=== PATIENT | female | born 1935 | race Caucasian/White ===

== ENCOUNTER 2020-05-19 15:09 | Outpatient (REF) | payer OTHER, SELFPAY ==
[2020-05-19 16:12] LABS: Anion Gap 22 (12-20); Blood Urea Nitrogen 35 mg/dL (9-16); Calcium 7.7 mg/dL (8.4-10.2); Carbon Dioxide 18 mmol/L (22-29); Chloride 101 mmol/L (96-108); Estimated Glomerular Filt Rate 50; Glucose Random 49 mg/dL (60-115); Potassium 5.5 mmol/l (3.3-5.1); Sodium 135 mmol/L (135-145)
== END 2020-05-19 15:10 | disposition home or self-care (01) ==
LOC: HO.HVNA 15:09
PROVIDERS: Visit Provider Internal Medicine
DX: N18.9 Chronic kidney disease, unspecified (principal)
CPT/HCPCS: 80048

== ENCOUNTER 2020-06-13 18:23 | Inpatient (IN) | payer OTHER, SELFPAY ==
[2020-06-13 18:36] VITALS: BP 167/71; BP 178/100; PULSE 105; PULSE 62; RESP 18; TEMP 37.7; O2SAT 98; BMI 18.5
--- NOTE | 2020-06-13 18:46 | CT_ITS ---
EXAMINATION: CT ABDOMEN AND PELVIS WITH CONTRAST CLINICAL INFORMATION: Lower abdominal pain, diarrhea COMPARISON: 02/11/2016 TECHNIQUE: Multidetector volumetric images were obtained from the superior aspect of the liver through the pubic symphysis following administration 85 mL of Omnipaque 350 intravenous contrast. Sagittal and coronal reformatted images were obtained on the technologist's workstation. Oral contrast: No This CT examination was performed using dose optimization techniques as appropriate, variously including the following: *Automated exposure control *Adjustment of mA and/or kV according to patient size (this includes techniques or standardized protocols for targeted exams where dose is matched to indication/reason for exam; i.e. extremities or head) *Use of iterative reconstruction technique DLP: 267 mGy-cm FINDINGS: LUNG BASES: The visualized lung bases are unremarkable. LIVER, GALLBLADDER, AND BILIARY TREE: The liver is normal in size, shape, and attenuation. No focal hepatic lesion or biliary ductal dilatation is present. The gallbladder is been removed. PANCREAS: The pancreatic tail is atrophied. SPLEEN: Unremarkable. ADRENAL GLANDS: Unremarkable. KIDNEYS AND URETERS: The kidneys are normal in size, shape, and attenuation. No hydronephrosis, hydroureter, or calculi seen. No perinephric stranding. BLADDER: Unremarkable. GASTROINTESTINAL TRACT: Stool-filled large bowel without dilatation to suggest obstruction. There is circumferential wall thickening throughout much of the sigmoid possibly representing diverticulitis or other nonspecific colitis. No obvious mass lesion. ABDOMINAL WALL: No significant hernia is appreciated. LYMPH NODES: Normal. VASCULAR: Diffuse atherosclerotic calcifications. PELVIC VISCERA: Unremarkable. OSSEOUS STRUCTURES: Osteopenia. Severe degenerative disc disease at L4-L5. Grouping of numerous subcutaneous calcifications superficial to both the right and left ischial tuberosities likely reflecting chronic pressure reaction. CT/CT abdomen pelvis w con IMPRESSION: Circumferential wall thickening of the sigmoid which may represent diverticulitis or other inflammatory process with no obvious mass lesion. There is stool throughout the large bowel with no dilatation to indicate an obstruction.
[2020-06-13 19:20] VITALS: BP 164/72; PULSE 96; RESP 18; TEMP 37.6; O2SAT 100
[2020-06-13 19:27] VITALS: TEMP 39.2
--- NOTE | 2020-06-13 20:10 | ED.ABDPAIN ---
HPI - Abdominal Pain General Chief Complaint: Abdominal Pain Stated Complaint: abd pain Time Seen by Provider: 06/13/20 18:39 Source: patient Mode of arrival: ambulatory History of Present Illness HPI narrative: 85-year-old female with a past medical history of HTN, GERD, cholecystectomy, abdominal surgery, presented to ED complaining of lower abdominal pain and diarrhea x3 days, worsening today. Denies bloody diarrhea/melena, nausea/vomiting, dysuria/hematuria, fever/chills MD elicited complaint: abdominal pain Related Data Allergies Allergy/AdvReac Type Severity Reaction Status Date / Time latex [LATEX] Allergy Intermediate ITCHING Unverified 04/03/20 15:27 nickel [NICKEL] Allergy Intermediate RASH/ITCH Unverified 04/03/20 15:27 Review of Systems Review of Systems Constitutional: No Weight loss, No Fever, No Chills Cardiovascular: No Chest Pain, No SOB, No Dyspnea on Exertion Respiratory: No Cough, No Dyspnea Gastrointestinal: No Nausea, No Vomiting, + Diarrhea, No Constipation, +Abdominal pain, No Hematochezia, No Melena Genitourinary: No irregular bleeding, No Dysuria, No Urinary Frequency, No Hematuria, No Flank Pain Musculoskeletal: No joint pain, No Myalgias, No Joint Swelling Skin: No Skin Lesions, No rash Yes all other systems are reviewed and are negative Physical Exam Vital Signs: Vital Signs: Last Vital Signs Temp 102.5 F H 06/13/20 19:27 Pulse 96 06/13/20 19:20 Resp 18 06/13/20 19:20 BP 164/72 H 06/13/20 19:20 Pulse Ox 100 06/13/20 19:20 Body Mass Index 18.5 Const: General: cooperative Orientation/consciousness: patient oriented x3 Limitations: no limitations HENMT: Head: Yes normal to inspection Ears: hearing grossly normal bilaterally General nose exam: Normal external nose present Face and sinus: Yes normal facial exam Eyes: General: appearance normal, both eyes and all related structures EOM: EOMs intact bilaterally Neck: Neck: Yes normal visual inspection Resp: Effort & Inspection: normal respiratory effort Cardio: Rate: regular rate GI: Inspection: Yes normal to inspection Palpation (GI): Soft to palpation, Tenderness to palpation present (GI) (Lower abdomen), no guarding and not rigid : General: Yes no CVA tenderness Back/Spine/Pelvis: Back: no CVA tenderness Skin: Rashes: no rashes Wounds: no wounds Neuro: General: patient oriented x3 Gait exam (Neuro): Normal gait present Extrem: General: Yes normal to inspection Course Course Course Narrative: -due to fever and tachycardia> empiric IV Zosyn ordered, blood cultures, and lactate will be obtained -leukocytosis of 16.5 with left shift -2100-- ED care transferrd to [employer] [facility] pending labs, CT, COVID-19 and re-evaluation MDM - Abdominal Pain MDM Narrative Medical decision making narrative: 85-year-old female with a past medical history of HTN, GERD, cholecystectomy, abdominal surgery, presented to ED complaining of lower abdominal pain and diarrhea x3 days. On exam mildly low-grade temp 99.8?, tachycardic likely from fever, abdomen soft with lower abdominal tenderness, no rebound or guarding. Concern for diverticulitis/appendicitis vs gastroenteritis or UTI. Plan: Labs, CT, UA, reassess Lab Data Result diagrams: 06/13/20 20:27 06/13/20 20:27 Labs: Lab Results 06/13/20 06/13/20 Range/Units 20:27 20:27 WBC 16.5 H (4.8-10.8) X10*3/uL RBC 3.40 L (4.20-5.50) X10*6/uL Hgb 9.9 L (12.0-16.0) g/dl Hct 31.2 L (37-47) % MCV 91.8 (80-98) fL MCH 29.1 (27.0-33.0) pg MCHC 31.7 (31.0-35.0) g/dl RDW 15.7 (11.0-16.0) % Plt Count 469 H (160-400) X10*3/uL MPV 8.5 L (9.4-12.3) fL Immature Gran % (Auto) 0.7 H (0.0-0.4) % Neut % (Auto) 89.7 H (45-73) % Lymph % (Auto) 5.3 L (20-40) % [place] % (Auto) 4.1 (2-11) % Eos % (Auto) 0.0 (0-4) % Baso % (Auto) 0.2 (0-2) % Lymph # (Auto) 0.9 L (1.2-4.9) X10*3/uL [place] # (Auto) 0.7 (0.1-1.2) X10*3/uL Eos # (Auto) 0.0 (0.0-0.4) X10*3/uL Baso # (Auto) 0.0 (0.0-0.2) X10*3/uL Abs Immat Gran (auto) 0.11 H (0.00-0.03) X10*3/uL Absolute Neuts (auto) 14.8 H (2.0-8.3) X10*3/uL Absolute Nucleated RBC 0.000 (0.0-0.012) X10*3/uL Nucleated RBC % (auto) 0.0 (0.0-0.2) /100WBC Hold Blue Top SEE NOTE Discharge Plan Discharge Clinical Impression: Abdominal pain, Fever PMFSH Past Medical History Attestation statement: The following information was validated with the patient. Social History Social History Advance Directives: No
--- NOTE | 2020-06-13 20:28 | PC.NURSE ---
pt is a difficult stick, 2nd rn attempting to get a line. labs drawn by leticia
[2020-06-13 20:37] LABS: Basophils Percent Auto 0.2 % (0-2); Hematocrit 31.2 % (37-47); Hemoglobin 9.9 g/dl (12.0-16.0); Imm Gran Abs Auto 0.11 X10*3/uL (0.00-0.03); Imm Gran Pct Auto 0.7 % (0.0-0.4); Lymphocytes Absolute Auto 0.9 X10*3/uL (1.2-4.9); Lymphocytes Percent Auto 5.3 % (20-40); MANUAL DIFF FLAG NO; Mean Corpuscular HGB Conc 31.7 g/dl (31.0-35.0); Mean Corpuscular Hemoglobin 29.1 pg (27.0-33.0); Mean Corpuscular Volume 91.8 fL (80-98); Mean Platelet Volume 8.5 fL (9.4-12.3); Monocytes Absolute Auto 0.7 X10*3/uL (0.1-1.2); Monocytes Percent Auto 4.1 % (2-11); Neutrophils Absolute Auto 14.8 X10*3/uL (2.0-8.3); Neutrophils Percent Auto 89.7 % (45-73); Platelet Count 469 X10*3/uL (160-400); Red Cell Distribution Width 15.7 % (11.0-16.0); White Blood Count 16.5 X10*3/uL (4.8-10.8)
[2020-06-13] MEDS: Acetaminophen 325 MG TABLET 650 MG PO (21:00)
[2020-06-13] MEDS: Piperacillin Sodium/Tazobactam 3.375 GM in 0.9 % Sodium Chloride 50 ML IV (21:02)
[2020-06-13] MEDS: 0.9 % Sodium Chloride 500 ML IV (21:02)
[2020-06-13 21:04] VITALS: BP 152/81; RESP 24
[2020-06-13 21:14] LABS: Alanine Aminotransferase 13 U/L (0-31); Albumin Level 2.7 g/dL (3.5-5.0); Alkaline Phosphatase 145 U/L (39-117); Anion Gap 14 (12-20); Aspartate Amino Transferase 19 U/L (5-31); Bilirubin Direct 0.3 mg/dL (0.0-0.5); Bilirubin Total 0.5 mg/dL (0.0-1.0); Blood Urea Nitrogen 16 mg/dL (9-16); Calcium 8.1 mg/dL (8.4-10.2); Carbon Dioxide 24 mmol/L (22-29); Chloride 99 mmol/L (96-108); Creatinine Clr Calc Pharmacy 36.6; Estimated Glomerular Filt Rate 60; Glucose Random 107 mg/dL (60-115); Lipase 16 U/L (8-78); Potassium 4.3 mmol/l (3.3-5.1); Sodium 133 mmol/L (135-145); Total Protein 5.7 g/dL (6.5-8.0)
[2020-06-13 21:19] LABS: Lactic Acid 2.7 mmol/L (0.5-2.0)
[2020-06-13 21:45] LABS: B Type Natriuretic Peptide 713 pg/mL (<100)
[2020-06-13] MEDS: iohexoL 350 MG/ML 100 ML INFUS..BTL IV (21:45)
--- NOTE | 2020-06-13 21:51 | PC.NURSE ---
pt reasked again how long she has had diarrhea and pt states 3 weeks not 3 days. pt states she has been using depends for the entire time.
[2020-06-13 22:03] VITALS: TEMP 38.7
[2020-06-13 22:35] LABS: Reflex Lactate? Lactic Acid Added
[2020-06-13] MEDS: diphenhydrAMINE HCL 50 MG/ML VIAL IVPUSH (22:49)
[2020-06-13 23:04] LABS: COVID-19 Test Negative (Negative)
[2020-06-13 23:13] LABS: CDIFF Ag Negative (Negative); CDIFF Internal ctrl Dots and bkg OK (V); CDiff Toxin Negative (Negative)
[2020-06-13 23:26] LABS: Leukocytes Stool Qualitative NEGATIVE (NEGATIVE)
[2020-06-13 23:39] VITALS: BP 84/43; PULSE 104; RESP 20; TEMP 37.9; O2SAT 98
[2020-06-14] VITALS (8 sets, daily range): BP systolic 105–199; BP diastolic 55–77; PULSE 57–87; RESP 16–20; TEMP 36.1–37; O2SAT 94–100
[2020-06-14 00:36] LABS: ~Lactic Acid-LAB USE ONLY 1.8 mmol/L (0.5-2.0)
--- NOTE | 2020-06-14 01:27 | PC.NURSE ---
pt redness to dani area and buttock improving since the extra protective cream has been applied. pt has also been repositioned and ivf to prevent skin further breakdown.
[2020-06-14 01:36] LABS: Glucose Urine UA NEG (NEG); Leukocyte Esterase Urine NEG (NEG); Nitrite Urine NEG (NEG); Specific Gravity - Urine >= 1.030 (1.005-1.025); Urine Blood NEG (NEG); Urine Ketones NEG (NEG); Urine Protein 2+ MG/DL (NEG-TRACE)
[2020-06-14 01:37] LABS: Appearance Urine HAZY; Color Urine AMBER
--- NOTE | 2020-06-14 01:37 | P.HPHOSP_ITS ---
History of Present Illness Date of Service: 06/14/20 Chief Complaint: abdominal pain this is an 85-year-old female with past medical history of hypertension , hypothyroidism, peripheral vascular disease,who presents to hospital with abdominal pain. abdominal pain started yesterday, patient has also been havin g diarrhea on and off for the past several weeks. She has had antibiotics about a month ago for the treatment of lower extremity wounds. Patient is no longer On antibiotics. she was at [facility]. She describes the pain as sharp, located in the right lower extremity, 9/10, nonradiating, worse with food, associated with diarrhea that is nonbloody. She also is complaining of urinary urgency, no frequency, dysuria, no fever or chills. No nausea or vomiting. No chest pain shortness of breath . Has lower extremity edema that is chronic with no changes. She denies any shortness of breath, PND or orthopnea. No headache or change in vision On arrival to the ED hemodynamically stable with no significant abnormal vitals except for 1 recorded low blood pressure of 84/43 which responded to IV fluids and currently blood pressure is 121/68. Labs are significant for a WBC count of 16.5, sodium of 133, lactic acid of 2.7 others that improved to 1.8, BNP of 713, albumin of 2.7, UA negative, C diff negative, COVID-19 negative Past medical history: Hypertension, hypothyroidism, peripheral vascular disease with a recent stent placement on the left lower extremity Surgical history: Status post stomach resection about 54 years ago, cholecystectomy, appendectomy, stent placement in the left lower extremity due to PVD Family history significant for hypertension Social history: Comes from home, walks independently, denies tobacco, drinks alcohol on weekends, denies illicit drug Review of Systems Review of Systems: Yes all other systems are reviewed and are negative [facility] Medical History (Updated 06/14/20 @ 06:27 by Everardo Griggs MD) GERD (gastroesophageal reflux disease) Hypertension Peripheral vascular disease Surgical History Hx laparoscopic cholecystectomy Social History Household Members: None Housing: Assisted Living Facility Do you presently have visiting nurse or other home services: Yes Smoking Status: Never smoker Smoked in Last 30 Days: No Use of substances other than those prescribed or required for medical reasons: No Currently Displaying Signs/Symptoms of Drug Intoxication Withdrawal: No Have you been hit, kicked, punched, or otherwise hurt by someone within the past year? If so, by whom?: No Do you feel safe in your current relationship?: No Current Relationship Is there a partner from a previous relationship who is making you feel unsafe now?: No Are you made to feel afraid or neglected: No Advance Directives: No Do you have thoughts of harming others: None Do you have a plan to hurt others: No Plan Recently lost weight without trying: No Meds Allergies Allergy/AdvReac Type Severity Reaction Status Date / Time latex [LATEX] Allergy Intermediate ITCHING Verified 06/14/20 03:10 nickel [NICKEL] Allergy Intermediate RASH/ITCH Verified 06/14/20 03:10 piperacillin [From Zosyn] AdvReac Hives Verified 06/13/20 22:46 tazobactam [From Zosyn] AdvReac restless, Verified 06/13/20 22:51 itchy Home Medications Medication Instructions Recorded Confirmed Type atenolol 50 tab PO DAILY 06/13/20 06/13/20 History levothyroxine 1 tab PO QAM 06/13/20 06/13/20 History Baby Aspirin 81 mg PO DAILY 06/14/20 06/14/20 History calcitriol 1 cap PO 2XW 06/14/20 06/14/20 History clopidogrel 1 tab PO DAILY 06/14/20 06/14/20 History latanoprost 1 drp OPHTHALMIC (EYE) BEDTIME 06/14/20 06/14/20 History Physical Exam Vital Signs and Narrative: Vital Signs: Last Vital Signs Temp 100.3 F 06/13/20 23:39 Pulse 83 06/14/20 01:18 Resp 16 06/14/20 01:18 BP 105/55 L 06/14/20 01:18 Pulse Ox 100 06/14/20 01:18 Body Mass Index 18.5 Const: General: cooperative and no acute distress Orientation/con sciousness: patient oriented x3 Eyes: General: appearance normal, both eyes and all related structures Pupils: Equal, round and reactive pupils present Resp: Effort & Inspection: normal respiratory effort and able to speak in complete sentences Auscultation: clear to auscultation bilaterally Cardio: Rate: regular rate Rhythm: regular rhythm GI: Palpation (GI): Soft to palpation Auscultation: normal bowel sounds Skin: Other: has bilateral extremity edema with wrapped wounds in the left lower extremity no evidence of erythema, warmth, or tenderness Neuro: General: patient oriented x3 Cranial nerves: Yes Equal, round and reactive pupils present Cognition (Neuro): normal cognition Extrem: Other: 2+ lower extremity edema General: Yes normal to inspection Results Labs CBC and Chem 7: 06/13/20 20:27 06/13/20 20:27 Labs: Laboratory Results - last 24 hr 06/13/20 06/13/20 06/13/20 20:27 20:27 20:27 MCV 91.8 MCH 29.1 MCHC 31.7 RDW 15.7 Plt Count 469 H MPV 8.5 L Immature Gran % (Auto) 0.7 H Neut % (Auto) 89.7 H Lymph % (Auto) 5.3 L [place] % (Auto) 4.1 Eos % (Auto) 0.0 Baso % (Auto) 0.2 Lymph # (Auto) 0.9 L [place] # (Auto) 0.7 Eos # (Auto) 0.0 Baso # (Auto) 0.0 Abs Immat Gran (auto) 0.11 H Absolute Neuts (auto) 14.8 H Absolute Nucleated RBC 0.000 Nucleated RBC % (auto) 0.0 Hold Blue Top SEE NOTE Anion Gap 14 Estim Creat Clear Calc 36.6 Estimated GFR 60 Random Glucose 107 D Lactic Acid Lactic Acid Fup @ 2Hr Calcium 8.1 L Magnesium 2.0 Total Bilirubin 0.5 Direct Bilirubin 0.3 AST 19 ALT 13 Alkaline Phosphatase 145 H B-Natriuretic Peptide Total Protein 5.7 L Albumin 2.7 L Lipase 16 Stool Leukocytes, Qual C. difficile Toxin A&B C. difficile Antigen C. difficile Interpret COVID-19 (MK) COVID-19 Clin Com 06/13/20 06/13/20 06/13/20 20:27 20:27 22:30 MCV MCH MCHC RDW Plt Count MPV Immature Gran % (Auto) Neut % (Auto) Lymph % (Auto) [place] % (Auto) Eos % (Auto) Baso % (Auto) Lymph # (Auto) [place] # (Auto) Eos # (Auto) Baso # (Auto) Abs Immat Gran (auto) Absolute Neuts (auto) Absolute Nucleated RBC Nucleated RBC % (auto) Hold Blue Top Anion Gap Estim Creat Clear Calc Estimated GFR Random Glucose Lactic Acid 2.7 H* Lactic Acid Fup @ 2Hr Calcium Magnesium Total Bilirubin Direct Bilirubin AST ALT Alkaline Phosphatase B-Natriuretic Peptide 713 H Total Protein Albumin Lipase Stool Leukocytes, Qual C. difficile Toxin A&B C. difficile Antigen C. difficile Interpret COVID-19 (MK) Negative COVID-19 [employer] Com See Note 06/13/20 06/13/20 06/14/20 22:30 22:30 00:06 MCV MCH MCHC RDW Plt Count MPV Immature Gran % (Auto) Neut % (Auto) Lymph % (Auto) [place] % (Auto) Eos % (Auto) Baso % (Auto) Lymph # (Auto) [place] # (Auto) Eos # (Auto) Baso # (Auto) Abs Immat Gran (auto) Absolute Neuts (auto) Absolute Nucleated RBC Nucleated RBC % (auto) Hold Blue Top Anion Gap Estim Creat Clear Calc Estimated GFR Random Glucose Lactic Acid Lactic Acid Fup @ 2Hr 1.8 Calcium Magnesium Total Bilirubin Direct Bilirubin AST ALT Alkaline Phosphatase B-Natriuretic Peptide Total Protein Albumin Lipase Stool Leukocytes, Qual NEGATIVE C. difficile Toxin A&B Negative C. difficile Antigen Negative C. difficile Interpret SEE NOTE COVID-19 (MK) COVID-19 [employer] [facility] Radiologist's Impressions: Impressions Abdomen/Pelvis CT 06/13/20 18:46 IMPRESSION: Circumferential wall thickening of the sigmoid which may represent diverticulitis or other inflammatory process with no obvious mass lesion. There is stool throughout the large bowel with no dilatation to indicate an obstruction. Assessment and Plan (1) Abdominal pain: Status: Acute (2) Diverticulitis: Status: Acute (3) Sepsis: Status: Acute (4) Peripheral vascular disease: Status: Acute (5) Hypertension: Status: Acute (6) Hypothyroidism: Status: Acute this is an 85-year-old female with past medical history as above who presents to the hospital found to have diverticulitis # sepsis - secondary to diverticulitis - leukocytosis, febrile, hypotensive, tachycardic plan: - IV antibiotic - IV fluid - follow culture # abdominal pain - secondary to acute diverticulitis, no evidence of perforation or other complication - has leukocytosis, febrile, hypotensive, as well as tachycardia - otherwise hemodynamically stable plan - will start her on Flagyl as well as levofloxacin, patient received Zosyn in the ED but had an allergic reaction to - follow blood culture - general surgery consult # diverticulitis - findings as above - has sepsis as a Result Plan: - IV antibiotics as above - NPO - general surgery # diarrhea - most likely secondary to diverticulitis - C diff negative - supportive measure # peripheral vascular disease - status post stent in the left lower extremity - continue Plavix # hypertension - state - continue atenolol # hypothyroidism - continue levothyroxine DVT prophylaxis: Lovenox
[2020-06-14 01:45] LABS: Amorphous Sediment Urine 2+ /LPF; Mucus Urine TRACE /LPF; RBC Urine 0 /HPF (0); Squamous Epithelial Cell Urine 1+ /LPF; WBC Urine 0-2 /HPF (0-4)
--- NOTE | 2020-06-14 02:49 | PC.NURSE ---
PAULA SANCHES MADE AWARE PT HAS A DRESSING THAT WAS CHANGED YESTERDAY AND NEXT DATE TO CHANGE IS ON TUESDAY. PT REFUSED TO HAVE THE DRESSING TO HER LOWER LEG REMOVED. PT FEVER RESOLVED AND PT IS NO LONGER HAVING THE CHILLS. NS CHANGED OVER TO 100CC HR AND RN MADE AWARE.
[2020-06-14] MEDS: 0.9 % Sodium Chloride 1,000 ML 100 ML IVCONT ×2 (02:58→14:05)
[2020-06-14] MEDS: Acetaminophen 325 MG TABLET 650 MG PO (03:45)
[2020-06-14] MEDS: metroNIDAZOLE/NS 500 MG/100 ML PIGGYBACK 100 MG IV ×3 (03:46→19:38)
--- NOTE | 2020-06-14 04:00 | PC.NURSE ---
PT HAS LEFT LOWER LEG AND ANKLE DRESSING THAT WAS REDRESSED ON Tuesday06/13/20 BY VISITING NURSE PER PATIENT. PT NOT ALLOWING NURSE TO TAKE DOWN DRESSING AT THIS TIME. PT STATES SHE HAD RECENT ANGIOGRAM W STENT PLACEMENT OF LEFT LEG. POSSIBLE VENOUS STASIS ULCER/WOUND??? PT STATES DRESSING TO BE CHANGED 3X WEEK AND HAS APPT AT [facility] ON Tuesday06/16/20. LEFT BIG TOE ALSO HAS NEW DRESSING W MISSING TOENAIL.
[2020-06-14] MEDS: levoFLOXacin/D5W 750 MG/150 ML PIGGYBACK 100 MG IV (04:49)
[2020-06-14] MEDS: Levothyroxine Sodium 75 MCG TABLET PO (06:01)
[2020-06-14] MEDS: Clopidogrel Bisulfate 75 MG TABLET PO (09:25)
[2020-06-14] MEDS: Enoxaparin Sodium 40 MG/0.4 ML SYRINGE SUBCUT (09:25)
[2020-06-14] MEDS: Aspirin 81 MG TAB.CHEW PO (09:25)
--- NOTE | 2020-06-14 09:47 | P.CONGS_ITS ---
History of Present Illness Consult details Consult date: 06/14/20 Narrative: Michelle Álvarez Is an 85-year-old female presenting with complaints of abdominal pain. She reports a previous history of gastric surgery in 1965 for ulcer disease and subsequently has been on restricted, low volume diet. She feels she over did it on Thanksgiving resulting in increased abdominal pain especially in the left lower quadrant. She also reports diarrhea for the previous 3 days but denies bloody stool, nausea, vomiting, fever, chills or other associated symptoms. She denies a previous history of similar pains. Her last colonoscopy was at the age of 82 which was normal. She reports her twin sister from complications of colon cancer. A CT of the abdomen and pelvis was obtained in the emergency department and revealed inflammation of the sigmoid colon suggestive of diverticulitis no abscess or free air is identified. She was admitted to the hospitalist service for IV antibiotics. This morning she reports a normal bowel movement with a marked decrease in her abdominal pain. Review of Systems Constitutional: Constitutional: Denies chills, Denies fever(s), Denies headache(s) and Denies poor appetite ENT: Denies dizziness and Denies headache(s) Cardiovascular: Cardiovascular: Denies chest pain, Denies rapid heart rate, Denies palpitations and Denies slow heart rate Respiratory: Respiratory: Denies chest congestion, Denies cough, Denies pain on inspiration and Denies wheezing Gastrointestinal: Gastrointestinal: Reports abdominal pain, Denies hematochezia, Denies change in stool character, Denies constipation, Reports GI cramping, Reports diarrhea, Denies nausea, Denies vomiting and Denies hematemesis Musculoskeletal: Musculoskeletal: Denies back pain, Denies arthralgias, Denies joint swelling and Denies numbness Integumentary/Breasts: Skin/Breast: Denies change in pigmentation, Denies erythema and Denies rash Neurologic: Denies confusion, Denies dizziness, Denies headache(s) and Denies numbness Psychiatric: Psychiatric: Denies anxiety, Denies confusion and Denies depression Endocrine: Endocrine: Denies palpitations Hematologic/Lymphatic: Hematologic/Lymphatic: Denies easy bleeding, Denies easy bruising and Denies lymphadenopathy Allergic/Immunologic: Allergic/Immunologic: Denies wheezing PMFSH Past Medical History Medical History GERD (gastroesophageal reflux disease) Hypertension Peripheral vascular disease Surgical History Surgical History Hx laparoscopic cholecystectomy Social History Social History Household Members: None Housing: Assisted Living Facility Do you presently have visiting nurse or other home services: Yes Smoking Status: Never smoker Smoked in Last 30 Days: No Use of substances other than those prescribed or required for medical reasons: No Currently Displaying Signs/Symptoms of Drug Intoxication Withdrawal: No Have you been hit, kicked, punched, or otherwise hurt by someone within the past year? If so, by whom?: No Do you feel safe in your current relationship?: No Current Relationship Is there a partner from a previous relationship who is making you feel unsafe now?: No Are you made to feel afraid or neglected: No Advance Directives: No Do you have thoughts of harming others: None Do you have a plan to hurt others: No Plan Recently lost weight without trying: No Meds Allergies Allergy/AdvReac Type Severity Reaction Status Date / Time latex [LATEX] Allergy Intermediate ITCHING Verified 06/14/20 03:10 nickel [NICKEL] Allergy Intermediate RASH/ITCH Verified 06/14/20 03:10 piperacillin [From Zosyn] AdvReac Hives Verified 06/13/20 22:46 tazobactam [From Zosyn] AdvReac restless, Verified 06/13/20 22:51 itchy Home Medications Medication Instructions Recorded Confirmed Type atenolol 50 mg PO DAILY 06/13/20 06/14/20 History levothyroxine 1 tab PO QAM 06/13/20 06/13/20 History Baby Aspirin 81 mg PO DAILY 06/14/20 06/14/20 History calcitriol 1 cap PO 2XW 06/14/20 06/14/20 History clopidogrel 1 tab PO DAILY 06/14/20 06/14/20 History latanoprost 1 drp OPHTHALMIC (EYE) BEDTIME 06/14/20 06/14/20 History Physical Exam Vital Signs: Vital Signs: Last Vital Signs Temp 97.6 F 06/14/20 07:46 Pulse 58 06/14/20 07:46 Resp 18 06/14/20 07:46 BP 134/61 06/14/20 07:46 Pulse Ox 95 06/14/20 07:46 Body Mass Index 18.5 Const: General: cooperative, comfortable and well developed; No confusion Nutritional Appearance: well nourished Orientation/consciousness: patient oriented x3 and No confusion Eyes: Sclerae: sclerae normal EOM: EOMs intact bilaterally Neck: Neck: Yes normal visual inspection Resp: Effort & Inspection: normal respiratory effort, no cough and no respiratory distress Cardio: Jugular venous distension: no JVD Rate: regular rate Rhythm: regular rhythm GI: Inspection: Yes normal to inspection Palpation (GI): Soft to palpation, nontender, no guarding and not rigid Percussion: Yes normal to percussion Auscultation: normal bowel sounds Skin: General skin exam: dry skin Rashes: no rashes Neuro: General: patient oriented x3, no focal motor deficits and No confusion Extrem: General: Yes full ROM and Yes no clubbing, cyanosis or edema Results Labs Result diagrams: 06/13/20 20:27 06/13/20 20:27 Labs: Abnormal lab results 06/13/20 06/13/20 06/13/20 Range/Units 20:27 20:27 20:27 WBC 16.5 H (4.8-10.8) X10*3/uL RBC 3.40 L (4.20-5.50) X10*6/uL Hgb 9.9 L (12.0-16.0) g/dl Hct 31.2 L (37-47) % Plt Count 469 H (160-400) X10*3/uL MPV 8.5 L (9.4-12.3) fL Immature Gran % (Auto) 0.7 H (0.0-0.4) % Neut % (Auto) 89.7 H (45-73) % Lymph % (Auto) 5.3 L (20-40) % Lymph # (Auto) 0.9 L (1.2-4.9) X10*3/uL Abs Immat Gran (auto) 0.11 H (0.00-0.03) X10*3/uL Absolute Neuts (auto) 14.8 H (2.0-8.3) X10*3/uL Sodium 133 L (135-145) mmol/L Lactic Acid (0.5-2.0) mmol/L Calcium 8.1 L (8.4-10.2) mg/dL Alkaline Phosphatase 145 H (39-117) U/L B-Natriuretic Peptide 713 H (<100) pg/mL Total Protein 5.7 L (6.5-8.0) g/dL Albumin 2.7 L (3.5-5.0) g/dL Ur Specific Catarina (1.005-1.025) Urine Protein (NEG-TRACE) MG/DL 06/13/20 06/14/20 Range/Units 20: 01:29 WBC (4.8-10.8) X10*3/uL RBC (4.20-5.50) X10*6/uL Hgb (12.0-16.0) g/dl Hct (37-47) % Plt Count (160-400) X10*3/uL MPV (9.4-12.3) fL Immature Gran % (Auto) (0.0-0.4) % Neut % (Auto) (45-73) % Lymph % (Auto) (20-40) % Lymph # (Auto) (1.2-4.9) X10*3/uL Abs Immat Gran (auto) (0.00-0.03) X10*3/uL Absolute Neuts (auto) (2.0-8.3) X10*3/uL Sodium (135-145) mmol/L Lactic Acid 2.7 H* (0.5-2.0) mmol/L Calcium (8.4-10.2) mg/dL Alkaline Phosphatase (39-117) U/L B-Natriuretic Peptide (<100) pg/mL Total Protein (6.5-8.0) g/dL Albumin (3.5-5.0) g/dL Ur Specific Catarina >= 1.030 H (1.005-1.025) Urine Protein 2+ H (NEG-TRACE) MG/DL Short CBC 06/13/20 Range/Units 20:27 WBC 16.5 H (4.8-10.8) X10*3/uL Hgb 9.9 L (12.0-16.0) g/dl Hct 31.2 L (37-47) % Plt Count 469 H (160-400) X10*3/uL BMP 06/13/20 20:27 Sodium 133 L Potassium 4.3 D Chloride 99 Carbon Dioxide 24 BUN 16 D Creatinine 0.90 Calcium 8.1 L Liver Function 06/13/20 Range/Units 20:27 Total Bilirubin 0.5 (0.0-1.0) mg/dL Direct Bilirubin 0.3 (0.0-0.5) mg/dL AST 19 (5-31) U/L ALT 13 (0-31) U/L Alkaline Phosphatase 145 H (39-117) U/L Albumin 2.7 L (3.5-5.0) g/dL Urine 06/14/20 Range/Units 01:29 Urine Color ROMAINE Urine Appearance HAZY Urine pH 6.0 (5.0-8.0) Ur Specific Catarina >= 1.030 H (1.005-1.025) Urine Protein 2+ H (NEG-TRACE) MG/DL Urine Glucose (UA) NEG (NEG) MG/DL All other labs normal. EXAMINATION: CT ABDOMEN AND PELVIS WITH CONTRAST FINDINGS: LUNG BASES: The visualized lung bases are unremarkable. LIVER, GALLBLADDER, AND BILIARY TREE: The liver is normal in size, shape, and attenuation. No focal hepatic lesion or biliary ductal dilatation is present. The gallbladder is been removed. PANCREAS: The pancreatic tail is atrophied. SPLEEN: Unremarkable. ADRENAL GLANDS: Unremarkable. KIDNEYS AND URETERS: The kidneys are normal in size, shape, and attenuation. No hydronephrosis, hydroureter, or calculi seen. No perinephric stranding. BLADDER: Unremarkable. GASTROINTESTINAL TRACT: Stool-filled large bowel without dilatation to suggest obstruction. There is circumferential wall thickening throughout much of the sigmoid possibly representing diverticulitis or other nonspecific colitis. No obvious mass lesion. ABDOMINAL WALL: No significant hernia is appreciated. LYMPH NODES: Normal. VASCULAR: Diffuse atherosclerotic calcifications. PELVIC VISCERA: Unremarkable. OSSEOUS STRUCTURES: Osteopenia. Severe degenerative disc disease at L4-L5. Grouping of numerous subcutaneous calcifications superficial to both the right and left ischial tuberosities likely reflecting chronic pressure reaction. IMPRESSION: Circumferential wall thickening of the sigmoid which may represent diverticulitis or other inflammatory process with no obvious mass lesion. There is stool throughout the large bowel with no dilatation to indicate an obstruction. Assessment and Plan (1) Diverticulitis: Status: Acute 85-year-old female patient presenting with complaints of abdominal pain in left lower quadrant associated with diarrhea. On examination the patient was noted to be tender in the left lower quadrant without rebound or guarding. WBC was elevated. CT of the abdomen revealed stool throughout the colon but some thickening in the sigmoid colon possibly related to colitis or sigmoid diverticulitis. No masses identified. Patient previously underwent colonoscopy approximately 3 years ago. This morning the patient feels much improved with no further abdominal pain after a.m. large bowel movement. Her examination reveals her abdomen to be soft, nondistended, with no peritoneal signs. Patient appears much improved and can probably restart her diet. Would continue her antibiotics for the probable diverticulitis.
--- NOTE | 2020-06-14 16:16 | MHC.CM.PN ---
PT REPORTS SHE LIVES AT [place] [facility] AND HAS NO HOME SERVICES. PT REPORTS SHE DOES USE A WALKER TO AMBULATE AND IS INDEPENDENT WITH ALL CARE. PT REPORTS HER NIECE LOUIS IS HER HCP AND DEANNA RAMÍREZ IS HER PCP. PT DOES NOT FEEL SHE WILL NEED ANY SERVICES AT DC. CURRENT DC PLAN IS HOME WITH NO SERVICES. PTS [facility] WILL TRANSPORT
--- NOTE | 2020-06-14 16:21 | P.PNIM_ITS ---
Subjective Subjective Date of Service: 06/15/20 Interval History: diverticulitis Review of Systems Still has left lower abdominal pain, has nausea. denies any chest pain or shortness of breath Physical Exam Vital Signs: Vital Signs: Last Vital Signs Temp 97.8 F 06/14/20 16:00 Pulse 57 06/14/20 16:00 Resp 20 06/14/20 16:00 BP 131/57 L 06/14/20 16:00 Pulse Ox 94 06/14/20 16:00 Body Mass Index 18.5 Physical exam: Cvs: rrr, [id number] , no murmur res: clear to auscultation ,no rhonchii or wheezing abd: no rebound or guarding , LLQ pain, bs present. ext pulses present , no cyanosis neuro: axo3 , nonfocal. Objective Data Current Medications Generic Name Dose Route Start Last Admin Trade Name Freq PRN Reason Stop Dose Admin Acetaminophen 650 mg 06/14/20 01:53 06/14/20 03:45 Acetaminophen 325 Mg Tablet PO 650 mg Q6H PRN Administration Pain, Mild (Pain Scale 1-3) Aspirin 81 mg 06/14/20 09:00 06/14/20 09:25 Aspirin 81 Mg Tab.Chew PO 81 mg DAILY PETER Administration Atenolol 50 mg 06/14/20 09:36 Atenolol 50 Mg Tablet PO DAILY [facility] Protocol Calcitriol 0.25 mcg 06/16/20 09:00 Calcitriol 0.25 Mcg Capsule PO MoWe@0900 PETER Clopidogrel Bisulfate 75 mg 06/14/20 09:00 06/14/20 09:25 Clopidogrel Bisulfate 75 Mg Tablet PO 75 mg DAILY PETER Administration Docusate Sodium 100 mg 06/14/20 01:53 Docusate Sodium 100 Mg Capsule PO DAILY PRN Constipation Enoxaparin Sodium 40 mg 06/14/20 08:00 06/14/20 09:25 Enoxaparin Sodium 40 Mg/0.4 Ml Syringe SUBCUT 40 mg Q24H PETER Administration Sodium Chloride 1,000 mls @ 100 mls/hr 06/14/20 01:53 06/14/20 14:05 Ns IVCONT 100 mls/hr .Q10H PETER Administration Metronidazole 500 mg in 100 mls @ 100 mls/hr 06/14/20 03:00 06/14/20 15:29 Flagyl IV Infused Q8H [facility]ER Infusion Levofloxacin 750 mg in 150 mls @ 100 mls/hr 06/16/20 06:00 Levaquin IV Q48H [facility] Latanoprost 1 drop 06/14/20 01:53 06/14/20 02:58 Latanoprost 0.005 % Ophth Roseanne 2.5 Ml Drops EYE-BOTH Not Given BEDTIME [facility] Levothyroxine Sodium 75 mcg 06/14/20 06:00 06/14/20 06:01 Levothyroxine Sodium 75 Mcg Tablet PO 75 mcg DAILY@0600 [facility] Administration Ondansetron HCl 4 mg 06/14/20 01:53 Ondansetron Hcl 4 Mg/2 Ml Vial IVPUSH Q8H PRN Nausea and Vomiting Pharmacy Consult 1 each 06/13/20 22:38 Consult Rx Perform Med Rec MISCELLANE ONCE PRN Consult order Sodium Chloride 3 ml 06/14/20 08:00 06/14/20 09:26 0.9 % Sodium Chloride Flush 3 Ml Syringe IVFLUSH Not Given QSHIFT [facility] Labs CBC & Chem 7: 06/15/20 10:10 06/15/20 06:12 Microbiology Microbiology Results: Microbiology 06/13/20 20:27 Blood - Venous Blood Culture - Preliminary 06/13/20 22:30 Stool Stool Culture - Preliminary Culture in progress. Assessment and Plan (1) Diverticulitis: Status: Acute Assessment and Plan: 85-year-old female with past medical history as above who presents to the hospital found to have diverticulitis 1. sepsis secondary to diverticulitis - leukocytosis, febrile, hypotensive, tachycardic Says abdominal pain slightly better Continue IV antibiotic-Levaquin and Flagyl. 1/2 blood culture [id number] cocci question contamination If patient fever or new symptoms then we might need to add vancomycin Seen by General surgery: Recommended continue antibiotic treatment. 2. diarrhea imrpoving most likely secondary to diverticulitis C diff negative supportive measure 3. peripheral vascular disease - status post stent in the left lower extremity - continue Plavix 4. hypertension: state, continue atenolol 5. hypothyroidism: continue levothyroxine
[2020-06-14] MEDS: Latanoprost 0.005 % Ophth Sol 2.5 ML DROPS 1 DROP EYE-BOTH (22:08)
[2020-06-15] VITALS (7 sets, daily range): BP systolic 115–158; BP diastolic 53–83; PULSE 61–84; RESP 16–18; TEMP 36.1–37.1; O2SAT 94–100
[2020-06-15] MEDS: 0.9 % Sodium Chloride 1,000 ML 100 ML IVCONT (00:05)
[2020-06-15] MEDS: metroNIDAZOLE/NS 500 MG/100 ML PIGGYBACK 100 MG IV (02:32)
[2020-06-15] MEDS: Levothyroxine Sodium 75 MCG TABLET PO (05:32)
[2020-06-15 07:00] LABS: MANUAL DIFF FLAG NO
[2020-06-15 07:10] LABS: Basophils Percent Auto 0.4 % (0-2); Eosinophils Percent Auto 0.4 % (0-4); Hematocrit 28.8 % (37-47); Hemoglobin 8.9 g/dl (12.0-16.0); Imm Gran Abs Auto 0.05 X10*3/uL (0.00-0.03); Imm Gran Pct Auto 0.6 % (0.0-0.4); Lymphocytes Absolute Auto 1.3 X10*3/uL (1.2-4.9); Lymphocytes Percent Auto 15.2 % (20-40); Mean Corpuscular HGB Conc 30.9 g/dl (31.0-35.0); Mean Corpuscular Hemoglobin 28.1 pg (27.0-33.0); Mean Corpuscular Volume 90.9 fL (80-98); Mean Platelet Volume 9.1 fL (9.4-12.3); Monocytes Absolute Auto 0.6 X10*3/uL (0.1-1.2); Neutrophils Absolute Auto 6.4 X10*3/uL (2.0-8.3); Neutrophils Percent Auto 76.4 % (45-73); Platelet Count 429 X10*3/uL (160-400); Red Blood Count 3.17 X10*6/uL (4.20-5.50); Red Cell Distribution Width 16.1 % (11.0-16.0); White Blood Count 8.4 X10*3/uL (4.8-10.8)
[2020-06-15 07:46] LABS: Anion Gap 12 (12-20); Blood Urea Nitrogen 16 mg/dL (9-16); Carbon Dioxide 21 mmol/L (22-29); Chloride 107 mmol/L (96-108); Creatinine Clr Calc Pharmacy 41.7; Estimated Glomerular Filt Rate > 60; Glucose Random 91 mg/dL (60-115); Potassium 3.8 mmol/l (3.3-5.1); Sodium 136 mmol/L (135-145)
[2020-06-15 08:01] LABS: Calcium 7.2 mg/dL (8.4-10.2)
[2020-06-15] MEDS: Clopidogrel Bisulfate 75 MG TABLET PO (09:25)
[2020-06-15] MEDS: atenoloL 50 MG TABLET PO (09:25)
[2020-06-15] MEDS: Aspirin 81 MG TAB.CHEW PO (09:25)
[2020-06-15] MEDS: Enoxaparin Sodium 40 MG/0.4 ML SYRINGE SUBCUT (09:26)
[2020-06-15] MEDS: 0.9 % Sodium Chloride Flush 3 ML SYRINGE IVFLUSH ×2 (09:26→20:27)
[2020-06-15 10:27] LABS: Hematocrit 33.7 % (37-47); Hemoglobin 10.6 g/dl (12.0-16.0)
--- NOTE | 2020-06-15 10:32 | PM.PNGS ---
Subjective Subjective Date of Service: 06/15/20 Interval history: Some abdominal pain left lower quadrant but overall feels improved. No new symptoms. Physical Exam Vital Signs: Vital Signs: Last Vital Signs Temp 97.0 F 06/15/20 08:00 Pulse 75 06/15/20 09:25 Resp 18 06/15/20 08:00 BP 152/76 H 06/15/20 09:25 Pulse Ox 94 06/15/20 08:00 Body Mass Index 18.5 Const: General: cooperative, comfortable and no acute distress Resp: Effort & Inspection: normal respiratory effort GI: Inspection: Yes normal to inspection Palpation (GI): Soft to palpation, Tenderness to palpation present (GI) in the LLQ, no guarding and not rigid Skin: General skin exam: no rashes or lesions noted and dry skin Extrem: General: Yes normal to inspection Progress Note: A&P Assessment and plan (1) Diverticulitis: Status: Acute Assessment and Plan: Patient presents with acute sigmoid diverticulitis with moderate improvement in her symptoms with the IV antibiotics. CT reveals inflammation of the sigmoid colon without evidence of perforation or abscess. Patient has no other history of previous diverticulitis but was noted to have diverticulosis on her colonoscopy in the sigmoid colon and 2016 (Dr. Kulkarni ). Continue antibiotics. No surgical intervention anticipated at this time. Fall Risk Details Current Medications: Current Medications Generic Name Dose Route Start Last Admin Trade Name Freq PRN Reason Stop Dose Admin Acetaminophen 650 mg 06/14/20 01:53 06/14/20 03:45 Acetaminophen 325 Mg Tablet PO 650 mg Q6H PRN Administration Pain, Mild (Pain Scale 1-3) Aspirin 81 mg 06/14/20 09:00 06/15/20 09:25 Aspirin 81 Mg Tab.Chew PO 81 mg DAILY PETER Administration Atenolol 50 mg 06/14/20 09:36 06/15/20 09:25 Atenolol 50 Mg Tablet PO 50 mg DAILY PETER Administration Protocol Calcitriol 0.25 mcg 06/16/20 09:00 Calcitriol 0.25 Mcg Capsule PO MoWe@0900 [facility] Clopidogrel Bisulfate 75 mg 06/14/20 09:00 06/15/20 09:25 Clopidogrel Bisulfate 75 Mg Tablet PO 75 mg DAILY PETER Administration Docusate Sodium 100 mg 06/14/20 01:53 Docusate Sodium 100 Mg Capsule PO DAILY PRN Constipation Enoxaparin Sodium 40 mg 06/14/20 08:00 06/15/20 09:26 Enoxaparin Sodium 40 Mg/0.4 Ml Syringe SUBCUT 40 mg Q24H PETER Administration Metronidazole 500 mg in 100 mls @ 100 mls/hr 06/14/20 03:00 06/15/20 03:44 Flagyl IV Infused Q8H [facility] Infusion Levofloxacin 750 mg in 150 mls @ 100 mls/hr 06/16/20 06:00 Levaquin IV Q48H [facility] Latanoprost 1 drop 06/14/20 01:53 06/14/20 22:08 Latanoprost 0.005 % Ophth Roseanne 2.5 Ml Drops EYE-BOTH 1 drop BEDTIME [facility] Administration Levothyroxine Sodium 75 mcg 06/14/20 06:00 06/15/20 05:32 Levothyroxine Sodium 75 Mcg Tablet PO 75 mcg DAILY@0600 [facility] Administration Ondansetron HCl 4 mg 06/14/20 01:53 Ondansetron Hcl 4 Mg/2 Ml Vial IVPUSH Q8H PRN Nausea and Vomiting Pharmacy Consult 1 each 06/13/20 22:38 Consult Rx Perform Med Rec MISCELLANE ONCE PRN Consult order Sodium Chloride 3 ml 06/14/20 08:00 06/15/20 09:26 0.9 % Sodium Chloride Flush 3 Ml Syringe IVFLUSH 3 ml QSHIFT [facility]ER Administration Time Spent With Patient Time: Total time spent is greater than 50% in coordination of care (as documented) at patient's floor/unit and/or counseling patient: Time with patient: less than 15 minutes
--- NOTE | 2020-06-15 14:15 | P.DS_ITS ---
DS: Providers Provider Date of admission: 06/14/20 01:35 Primary care physician: Den Gibosn MD Consults: 06/14/20 06:29 Consult to General Surgery Routine Consulting Provider: Tayo Goldberg Reason for consultation: diverticulitis Has provider been notified: No DS: Diagnosis Discharge Diagnosis (1) Diverticulitis: Status: Acute DS: Medications Discharge Medications Home Medications: Home Medications Medication Instructions Recorded Confirmed atenolol 50 mg PO DAILY 06/13/20 06/14/20 levothyroxine 1 tab PO QAM 06/13/20 06/13/20 Baby Aspirin 81 mg PO DAILY 06/14/20 06/14/20 calcitriol 1 cap PO 2XW 06/14/20 06/14/20 clopidogrel 1 tab PO DAILY 06/14/20 06/14/20 latanoprost 1 drp OPHTHALMIC (EYE) BEDTIME 06/14/20 06/14/20 DS: Summary Hospital Course Hospital Course: 85-year-old female with past medical history of hypertension , hypothyroidism, peripheral vascular disease,who presents to hospital with abdominal pain. abdominal pain started yesterday, patient has also been having diarrhea on and off for the past several weeks. She has had antibiotics about a month ago for the treatment of lower extremity wounds. Patient is no longer On antibiotics. [facility]. She describes the pain as sharp, located in the right lower extremity, 9/10, nonradiating, worse with food, associated with diarrhea that is nonbloody. She also is complaining of urinary urgency, no frequency, dysuria, no fever or chills. No nausea or vomiting. No chest pain shortness of breath . Has lower extremity edema that is chronic with no changes. She denies any shortness of breath, PND or orthopnea. No headache or change in vision On arrival to the ED hemodynamically stable with no significant abnormal vitals except for 1 recorded low blood pressure of 84/43 which responded to IV fluids and currently blood pressure is 121/68. Labs are significant for a WBC count of 16.5, sodium of 133, lactic acid of 2.7 others that improved to 1.8, BNP of 713, albumin of 2.7, UA negative, C diff negative, COVID-19 negative Past medical history: Hypertension, hypothyroidism, peripheral vascular disease with a recent stent placement on the left lower extremity Surgical history: Status post stomach resection about 54 years ago, cholecystectomy, appendectomy, stent placement in the left lower extremity due to PVD. Family history significant for hypertension Social history: Comes from home, walks independently, denies tobacco, drinks alcohol on weekends, denies illicit drug Hospital Course problem luis section: Patient came to the hospital because of issue of diverticulitis and sepsis subsequently started on IV antibiotic Levaquin and Flagyl, also blood culture was sent: Patient's blood culture were reviewed with infectious disease was growing Proteus yesterday and patient was discharged on p.o. Levaquin and Flagyl since patient improved leukocytosis resolved ,no fever or abdominal pain. Blood cultures are still preliminary, discussed with infectious disease patient can go home with Levaquin and Flagyl. Patient follow-up with her venous stasis of lower extremity with wound care out patiently she said she has appointment today , no erythema or discharge lower extremities. addm: 1/2 blood culture is growing Proteus, 2nd preliminary blood culture still pending proteus is senstive to levaquin Above management discussed with the patient in detail length she understand and in agreement with the above plan, time spent 50 minutes and 50% time spent on counseling. Significant findings: As above. Procedures performed: None. Treatment and response: As above. Complications: None. Time Spent with Patient Time attestation: Total time spent providing and/or coordinating discharge services: Physical Exam Vital Signs: Vital Signs: Last Vital Signs Temp 97.5 F 06/15/20 12:00 Pulse 70 06/15/20 12:00 Resp 18 06/15/20 12:00 BP 120/60 06/15/20 12:00 Pulse Ox 97 06/15/20 12:00 Body Mass Index 18.5 Physical exam: Constitutional: Not in distress. Cvs: rrr, [id number] , no murmur res: clear to auscultation ,no rhonchii or wheezing abd: no rebound or guarding ,nt, bs present. ext pulses present , no cyanosis. lower extermities left side - no erythem or discharge grossly , patient refuses to fully unwrapping it , she wants to follow up with her wound care . neuro: axo3 , nonfocal. DS: Data Data Completed and Pending Labs on day of discharge: 06/13/20 18:46 CT abdomen pelvis w con Stat 06/13/20 20:16 Piperacillin Sodium/Tazobactam [Zosyn] 3.375 gm 0.9 % Sodium Chloride [Ns] 50 ml IV ONCE 06/13/20 20:18 Dextrose 50 % [D50] 25 gm IVPUSH ONCE ONE 06/13/20 20:22 Acetaminophen [Tylenol] 650 mg PO ONCE ONE 06/13/20 20:27 B Type Natriuretic Peptide Stat Basic Metabolic Panel Stat Complete Blood Count Auto Diff Stat Hold Lt Blue - Possible Coag Stat Lactic Acid Stat Lipase Stat Liver Panel Stat Magnesium Stat 06/13/20 20:30 0.9 % Sodium Chloride [Ns] 500 ml IV 500 mls/hr 06/13/20 20:31 Piperacillin Sodium/Tazobactam [Zosyn] 3.375 gm IV .STK-MED ONE 06/13/20 21:45 iohexoL 350 MG/ML [Omnipaque 350 MG/ML] 100 ml IV ONCE ONE 06/13/20 22:30 CDiff with Reflex to PCR Stat COVID-19 ID NOW ([place]) Stat Leukocytes Stool Qualitative Stat 06/13/20 22:35 ~Lactic Acid-LAB USE ONLY Stat 06/13/20 22:38 Straight Urinary Catheterization .Now diphenhydrAMINE HCL [Benadryl] 50 mg IVPUSH ONCE ONE 06/13/20 23:41 0.9 % Sodium Chloride [Ns] 1,470 ml IV 999 mls/hr 06/14/20 01:25 Transfer Order Routine 06/14/20 01:53 0.9 % Sodium Chloride [Ns] 1,000 ml IVCONT 100 mls/hr 06/14/20 01:53 IV insert/maintain Q4HR Intake and Output Q8HR Vital Signs Q4HR 06/14/20 04:30 levoFLOXacin/D5W [Levaquin] 750 mg in 150 ml IV ONCE 06/14/20 09:00 atenoloL [Tenormin] 1,250 mg PO DAILY 06/14/20 Breakfast NPO Diet 06/14/20 Lunch Clear Liquid Diet 06/15/20 06:12 Basic Metabolic Panel Routine Complete Blood Count Auto Diff Routine 06/15/20 10:10 Hemoglobin and Hematocrit Routine Laboratory Last Values WBC 8.4 X10*3/uL (4.8-10.8) 06/15/20 06:12 WBC Cancelled 06/15/20 06:12 RBC 3.17 X10*6/uL (4.20-5.50) L 06/15/20 06:12 RBC Cancelled 06/15/20 06:12 Hgb 10.6 g/dl (12.0-16.0) L 06/15/20 10:10 Hct 33.7 % (37-47) L 06/15/20 10:10 MCV 90.9 fL (80-98) 06/15/20 06:12 MCV Cancelled 06/15/20 06:12 MCH 28.1 pg (27.0-33.0) 06/15/20 06:12 MCH Cancelled 06/15/20 06:12 MCHC 30.9 g/dl (31.0-35.0) L 06/15/20 06:12 MCHC Cancelled 06/15/20 06:12 RDW 16.1 % (11.0-16.0) H 06/15/20 06:12 RDW Cancelled 06/15/20 06:12 Plt Count 429 X10*3/uL (160-400) H 06/15/20 06:12 Plt Count Cancelled 06/15/20 06:12 MPV 9.1 fL (9.4-12.3) L 06/15/20 06:12 MPV Cancelled 06/15/20 06:12 Immature Gran % (Auto) 0.6 % (0.0-0.4) H 06/15/20 06:12 Neut % (Auto) 76.4 % (45-73) H 06/15/20 06:12 Lymph % (Auto) 15.2 % (20-40) L 06/15/20 06:12 Morgan % (Auto) 7.0 % (2-11) 06/15/20 06:12 Eos % (Auto) 0.4 % (0-4) 06/15/20 06:12 Baso % (Auto) 0.4 % (0-2) 06/15/20 06:12 Lymph # (Auto) 1.3 X10*3/uL (1.2-4.9) 06/15/20 06:12 Morgan # (Auto) 0.6 X10*3/uL (0.1-1.2) 06/15/20 06:12 Eos # (Auto) 0.0 X10*3/uL (0.0-0.4) 06/15/20 06:12 Baso # (Auto) 0.0 X10*3/uL (0.0-0.2) 06/15/20 06:12 Abs Immat Gran (auto) 0.05 X10*3/uL (0.00-0.03) H 06/15/20 06:12 Absolute Neuts (auto) 6.4 X10*3/uL (2.0-8.3) 06/15/20 06:12 Absolute Nucleated RBC 0.000 X10*3/uL (0.0-0.012) 06/15/20 06:12 Absolute Nucleated RBC Cancelled 06/15/20 06:12 Nucleated RBC % (auto) 0.0 /100WBC (0.0-0.2) 06/15/20 06:12 Nucleated RBC % (auto) Cancelled 06/15/20 06:12 Hold Blue Top SEE NOTE 06/13/20 20:27 Sodium 136 mmol/L (135-145) 06/15/20 06:12 Potassium 3.8 mmol/l (3.3-5.1) 06/15/20 06:12 Chloride 107 mmol/L (96-108) 06/15/20 06:12 Carbon Dioxide 21 mmol/L (22-29) L 06/15/20 06:12 Anion Gap 12 (12-20) 06/15/20 06:12 BUN 16 mg/dL (9-16) 06/15/20 06:12 Creatinine 0.79 mg/dL (0.5-1.4) 06/15/20 06:12 Estim Creat Clear Calc 41.7 06/15/20 06:12 Estimated GFR > 60 06/15/20 06:12 Random Glucose 91 mg/dL (60-115) 06/15/20 06:12 Lactic Acid 2.7 mmol/L (0.5-2.0) H* 06/13/20 20:27 Lactic Acid Fup @ 2Hr 1.8 mmol/L (0.5-2.0) 06/14/20 00:06 Calcium 7.2 mg/dL (8.4-10.2) L D 06/15/20 06:12 Magnesium 2.0 mg/dL (1.6-2.6) 06/13/20 20: Total Bilirubin 0.5 mg/dL (0.0-1.0) 06/13/20 20: Direct Bilirubin 0.3 mg/dL (0.0-0.5) 06/13/20 20: AST 19 U/L (5-31) 06/13/20 20: ALT 13 U/L (0-31) 06/13/20 20: Alkaline Phosphatase 145 U/L (39-117) H 06/13/20 20: B-Natriuretic Peptide 713 pg/mL (<100) H 06/13/20 20: Total Protein 5.7 g/dL (6.5-8.0) L 06/13/20 20: Albumin 2.7 g/dL (3.5-5.0) L 06/13/20 20: Lipase 16 U/L (8-78) 06/13/20 20: Urine Color ROMAINE 06/14/20 01: Urine Appearance HAZY 06/14/20 01: Urine pH 6.0 (5.0-8.0) 06/14/20 01: Ur Specific Paxton >= 1.030 (1.005-1.025) H 06/14/20 01: Urine Protein 2+ MG/DL (NEG-TRACE) H 06/14/20 01:29 Urine Glucose (UA) NEG MG/DL (NEG) 06/14/20 01: Urine Ketones NEG MG/DL (NEG) 06/14/20 01: Urine Blood NEG (NEG) 06/14/20 01: Urine Nitrite NEG (NEG) 06/14/20 01:29 Ur Leukocyte Esterase NEG (NEG) 06/14/20 01: Urine RBC 0 /HPF (0) 06/14/20 01: Urine WBC 0-2 /HPF (0-4) 06/14/20 01: Ur Squamous Epith Cells 1+ /LPF 06/14/20 01: Amorphous Sediment 2+ /LPF 06/14/20 01:29 Urine Bacteria NONE /LPF 06/14/20 01: Urine Mucus TRACE /LPF 06/14/20 01:29 Stool Leukocytes, Qual NEGATIVE (NEGATIVE) 06/13/20 22:30 C. difficile Toxin A&B Negative (Negative) 06/13/20 22:30 C. difficile Antigen Negative (Negative) 06/13/20 22:30 C. difficile Interpret SEE NOTE 06/13/20 22:30 COVID-19 (MK) Negative (Negative) 06/13/20 22:30 COVID-19 Clin Com See Note 06/13/20 22:30 Preliminary micro results at discharge 06/13/20 22:30 Stool Culture - Preliminary Stool Normal so far. 06/13/20 20:27 Blood Culture - Preliminary Blood - Venous Gram negative jacqui 06/13/20 20:27 Blood Culture - Preliminary Blood - Venous No growth after 24 hours. Discharge Plan Discharge Patient Disposition: Home Health Service Referrals: [facility] [Outside] Den Gibson MD [Primary Care Provider] - Discharge Medications: New levofloxacin 500 mg tablet 500 mg PO Q48H Qty: 7 RF: 0 metronidazole [Flagyl] 500 mg tablet 500 mg PO BID Qty: 8 RF: 0 Continued atenolol 25 mg tablet 50 mg PO DAILY RF: 0 levothyroxine 75 mcg tablet 1 tab PO QAM RF: 0 clopidogrel 75 mg tablet 1 tab PO DAILY RF: 0 latanoprost 0.005 % drops 1 drp ophthalmic (eye) BEDTIME RF: 0 calcitriol 0.25 mcg capsule 1 cap PO 2XW RF: 0 Baby Aspirin 81 mg PO DAILY RF: 0 Discharge Orders: Discharge Order (Routine); Ordered 06/16/20 Ordered By: Leonel Edmonds Diet: advance to usual diet Activity on Discharge: As tolerated Discharge Date/Time: 06/16/20 14:45 Other Ambulatory Orders: Complete Blood Count no Diff (Routine) Timeframe: 1 Week Facility: [facility] - Location: Laboratory Ordered By: Leonel Edmonds Visit Report Forms: Patient Portal Discharge page Care Plan Goals: as above. Health Concerns: Patient came with the diverticulitis, found to have bacteria in the blood: Started on antibiotics Levaquin and Flagyl, her WBC normalized and does not have any fever: Seen by infectious disease, Will switch the patient to Levaquin Flagyl upon discharge. Plan of Treatment: As above.
--- NOTE | 2020-06-15 15:48 | HO.PM.IMPN ---
Subjective Subjective Date of Service: 06/15/20 Interval History: diverticulitis , gram neg bactermia Review of Systems abd pain seems improvin, no fever, diarrhea resolved Physical Exam Vital Signs: Vital Signs: Last Vital Signs Temp 97.5 F 06/15/20 12:00 Pulse 70 06/15/20 12:00 Resp 18 06/15/20 12:00 BP 120/60 06/15/20 12:00 Pulse Ox 97 06/15/20 12:00 Body Mass Index 18.5 Physical exam: HEENT: Eyes are anicteric , no discharge. Cvs: [id number], [id number] , no murmur. res: clear to auscultation ,no rhonchii or wheezing. abd: no rebound or guarding ,nt, bs present. ext pulses present , no cyanosis. neuro: axo3 , nonfocal. Objective Data Current Medications Generic Name Dose Route Start Last Admin Trade Name Freq PRN Reason Stop Dose Admin Acetaminophen 650 mg 06/14/20 01:53 06/14/20 03:45 Acetaminophen 325 Mg Tablet PO 650 mg Q6H PRN Administration Pain, Mild (Pain Scale 1-3) Aspirin 81 mg 06/14/20 09:00 06/15/20 09:25 Aspirin 81 Mg Tab.Chew PO 81 mg DAILY PETER Administration Atenolol 50 mg 06/14/20 09:36 06/15/20 09:25 Atenolol 50 Mg Tablet PO 50 mg DAILY PETER Administration Protocol Calcitriol 0.25 mcg 06/16/20 09:00 Calcitriol 0.25 Mcg Capsule PO MoWe@0900 PETER Clopidogrel Bisulfate 75 mg 06/14/20 09:00 06/15/20 09:25 Clopidogrel Bisulfate 75 Mg Tablet PO 75 mg DAILY PETER Administration Docusate Sodium 100 mg 06/14/20 01:53 Docusate Sodium 100 Mg Capsule PO DAILY PRN Constipation Enoxaparin Sodium 40 mg 06/14/20 08:00 06/15/20 09:26 Enoxaparin Sodium 40 Mg/0.4 Ml Syringe SUBCUT 40 mg Q24H PETER Administration Metronidazole 500 mg in 100 mls @ 100 mls/hr 06/14/20 03:00 06/15/20 15:31 Flagyl IV Not Given Q8H PETER Levofloxacin 750 mg in 150 mls @ 100 mls/hr 06/16/20 06:00 Levaquin IV Q48H PETER Latanoprost 1 drop 06/14/20 01:53 06/14/20 22:08 Latanoprost 0.005 % Ophth Roseanne 2.5 Ml Drops EYE-BOTH 1 drop BEDTIME PETER Administration Levothyroxine Sodium 75 mcg 06/14/20 06:00 06/15/20 05:32 Levothyroxine Sodium 75 Mcg Tablet PO 75 mcg DAILY@0600 PETER Administration Ondansetron HCl 4 mg 06/14/20 01:53 Ondansetron Hcl 4 Mg/2 Ml Vial IVPUSH Q8H PRN Nausea and Vomiting Pharmacy Consult 1 each 06/13/20 22:38 Consult Rx Perform Med Rec MISCELLANE ONCE PRN Consult order Sodium Chloride 3 ml 06/14/20 08:00 06/15/20 09:26 0.9 % Sodium Chloride Flush 3 Ml Syringe IVFLUSH 3 ml QSHIFT PETER Administration Labs CBC & Chem 7: 06/15/20 10:10 06/15/20 06:12 Microbiology Microbiology Results: Microbiology 06/13/20 22:30 Stool Stool Culture - Preliminary Normal so far. 06/13/20 20:27 Blood - Venous Blood Culture - Preliminary Gram negative jacqui 06/13/20 20:27 Blood - Venous Blood Culture - Preliminary No growth after 24 hours. Assessment and Plan (1) Diverticulitis: Status: Acute (2) Gram-negative bacteremia: Status: Acute Assessment and Plan: 85-year-old female with past medical history as above who presents to the hospital found to have diverticulitis 1. sepsis secondary to diverticulitis Initially had leukocytosis, febrile, hypotensive, tachycardic. Blood culture growing Gram-negative jacqui 1/2 . Says abdominal pain slightly better Continue IV antibiotic-Levaquin and Flagyl. Seen by General surgery: Recommended continue antibiotic treatment. 2. diarrhea imrpoving most likely secondary to diverticulitis C diff negative supportive measure 3. peripheral vascular disease status post stent in the left lower extremity continue Plavix 4. hypertension: state, continue atenolol 5. hypothyroidism: continue levothyroxine.
--- NOTE | 2020-06-15 17:19 | HO.PM.IMPN ---
Subjective Subjective Date of Service: 06/17/20 Physical Exam Vital Signs: Vital Signs: Last Vital Signs Temp 97.3 F 06/15/20 16:00 Pulse 61 06/15/20 16:00 Resp 18 06/15/20 16:00 BP 115/53 L 06/15/20 16:00 Pulse Ox 96 06/15/20 16:00 Body Mass Index 18.5 Physical exam: Cvs: rrr, [id number] , no murmur res: clear to auscultation ,no rhonchii or wheezing abd: no rebound or guarding ,nt, bs present. ext pulses present , no cyanosis neuro: axo3 , nonfocal. Objective Data Current Medications Generic Name Dose Route Start Last Admin Trade Name Freq PRN Reason Stop Dose Admin Acetaminophen 650 mg 06/14/20 01:53 06/14/20 03:45 Acetaminophen 325 Mg Tablet PO 650 mg Q6H PRN Administration Pain, Mild (Pain Scale 1-3) Aspirin 81 mg 06/14/20 09:00 06/15/20 09:25 Aspirin 81 Mg Tab.Chew PO 81 mg DAILY PETER Administration Atenolol 50 mg 06/14/20 09:36 06/15/20 09:25 Atenolol 50 Mg Tablet PO 50 mg DAILY PETER Administration Protocol Calcitriol 0.25 mcg 06/16/20 09:00 Calcitriol 0.25 Mcg Capsule PO MoWe@0900 PETER Clopidogrel Bisulfate 75 mg 06/14/20 09:00 06/15/20 09:25 Clopidogrel Bisulfate 75 Mg Tablet PO 75 mg DAILY PETER Administration Docusate Sodium 100 mg 06/14/20 01:53 Docusate Sodium 100 Mg Capsule PO DAILY PRN Constipation Enoxaparin Sodium 40 mg 06/14/20 08:00 06/15/20 09:26 Enoxaparin Sodium 40 Mg/0.4 Ml Syringe SUBCUT 40 mg Q24H PETER Administration Metronidazole 500 mg in 100 mls @ 100 mls/hr 06/14/20 03:00 06/15/20 15:31 Flagyl IV Not Given Q8H PETER Levofloxacin 750 mg in 150 mls @ 100 mls/hr 06/16/20 06:00 Levaquin IV Q48H [facility] Latanoprost 1 drop 06/14/20 01:53 06/14/20 22:08 Latanoprost 0.005 % Ophth Roseanne 2.5 Ml Drops EYE-BOTH 1 drop BEDTIME PETER Administration Levothyroxine Sodium 75 mcg 06/14/20 06:00 06/15/20 05:32 Levothyroxine Sodium 75 Mcg Tablet PO 75 mcg DAILY@0600 PETER Administration Ondansetron HCl 4 mg 06/14/20 01:53 Ondansetron Hcl 4 Mg/2 Ml Vial IVPUSH Q8H PRN Nausea and Vomiting Pharmacy Consult 1 each 06/13/20 22:38 Consult Rx Perform Med Rec MISCELLANE ONCE PRN Consult order Sodium Chloride 3 ml 06/14/20 08:00 06/15/20 09:26 0.9 % Sodium Chloride Flush 3 Ml Syringe IVFLUSH 3 ml QSHIFT PETER Administration Labs CBC & Chem 7: 06/15/20 10:10 06/15/20 06:12 Microbiology Microbiology Results: Microbiology 06/13/20 22:30 Stool Stool Culture - Preliminary Normal so far. 06/13/20 20:27 Blood - Venous Blood Culture - Preliminary Gram negative jacqui 06/13/20 20:27 Blood - Venous Blood Culture - Preliminary No growth after 24 hours. Assessment and Plan (1) Gram-negative bacteremia: Status: Acute (2) Abdominal pain: Status: Acute
[2020-06-15] MEDS: Latanoprost 0.005 % Ophth Sol 2.5 ML DROPS 1 DROP EYE-BOTH (20:26)
[2020-06-16 03:05] VITALS: BP 165/77; PULSE 67; RESP 18; TEMP 36.5; O2SAT 100
[2020-06-16] MEDS: metroNIDAZOLE/NS 500 MG/100 ML PIGGYBACK 100 MG IV ×2 (03:37→11:39)
[2020-06-16] MEDS: Levothyroxine Sodium 75 MCG TABLET PO (05:43)
[2020-06-16] MEDS: levoFLOXacin/D5W 750 MG/150 ML PIGGYBACK 100 MG IV (05:43)
[2020-06-16 07:26] VITALS: BP 140/68; PULSE 68; RESP 18; TEMP 36.6; O2SAT 100
[2020-06-16] MEDS: Enoxaparin Sodium 40 MG/0.4 ML SYRINGE SUBCUT (08:38)
[2020-06-16] MEDS: 0.9 % Sodium Chloride Flush 3 ML SYRINGE IVFLUSH (08:38)
[2020-06-16] MEDS: Aspirin 81 MG TAB.CHEW PO (08:39)
[2020-06-16 08:41] VITALS: BP 140/68; PULSE 68
[2020-06-16] MEDS: atenoloL 50 MG TABLET PO (08:41)
[2020-06-16] MEDS: Clopidogrel Bisulfate 75 MG TABLET PO (08:41)
[2020-06-16] MEDS: calcitrioL 0.25 MCG CAPSULE PO (08:48)
[2020-06-16 11:09] VITALS: BP 146/67; PULSE 65; RESP 18; TEMP 36.6; O2SAT 96
--- NOTE | 2020-06-16 11:56 | MHC.CM.PN ---
Goal for dc is to return home, no services. Patient is receiving IV Levaquin and IV Flagyl and has not yet been medically cleared for dc. CM will continue to follow for dc planning and the possible need to adjust the dc plan.
--- NOTE | 2020-06-16 13:15 | MHC.CM.PN ---
CM was just informed that Patient is active with [facility].
--- NOTE | 2020-06-16 13:43 | MHC.CM.PN ---
Patient has been medically cleared for dc to home today. Patient was active with [facility] and they have been notified of today's dc. Last IMM addressed on 06/14/20.
--- NOTE | 2020-06-17 15:11 | MHC.CM.PN ---
Per Dr. Edmonds's request, attempted to reach Patient at both available numbers ([phone] and [phone]), but was only able to leave a detailed message at [phone], requesting that Patient call the main number and ask to speak to Dr. Edmonds. Dr. Edmonds is aware.
--- NOTE | 2020-06-17 15:13 | PM.EVENT ---
Event Note Date of Service: 06/20/20 Event Note: Patient was yesterday discharged on Levaquin because 1 blood culture was positive for Proteus and 2nd blood culture were preliminary-today came back positive for Gram-positive cocci in chains and Gram-negative rods mix Case management and We have called the patient: both no [phone] and [phone]. Messages left to call back, also discussed with infectious disease that for now we will continue Levaquin and discussed with the patient depending upon clinical status currently advise for further management.
--- NOTE | 2020-06-18 10:04 | MHC.CM.PN ---
Per Dr. Edmonds's request, has left another message for Michelle to call MD here at the hospital. has also asked if someone from [facility] could possible get this message to Michelle to call Dr. Edmonds.
--- NOTE | 2020-06-18 11:20 | P.EN_ITS ---
Event Note Date of Service: 06/20/20 Event Note: We have called to update patient again about her blood culture res ult and masses left again to the says both phone numbers which we did yesterday, and multiple phone calls was done through case management also and message left. in addition d/w Id again today Dr raines: seems like 2nd set culture is contminant.
== END 2020-06-16 14:45 | disposition home health service (06) | DRG 872 ==
LOC: HO.ED 22:41 → HO.IMC 06-14 01:44
PROVIDERS: Physician Assistant; Admitting Provider Internal Medicine; Emergency Provider Emergency Medicine; PCP Internal Medicine; Visit Provider Internal Medicine
DX: A41.9 Sepsis, unspecified organism (principal); K57.32 Diverticulitis of large intestine without perforation or abscess without bleeding; K21.9 Gastro-esophageal reflux disease without esophagitis; I10 Essential (primary) hypertension; E03.9 Hypothyroidism, unspecified; I73.9 Peripheral vascular disease, unspecified; Z20.828 Contact with and (suspected) exposure to other viral communicable diseases; Z79.02 Long term (current) use of antithrombotics/antiplatelets; Z79.82 Long term (current) use of aspirin; Z79.890 Hormone replacement therapy; Z79.899 Other long term (current) drug therapy
CPT/HCPCS: 36415; 74177; 80048; 80076; 81001; 83605; 83690; 83735; 83880; 85014; 85018; 85025; 85027; 87040; 87045; 87046; 87077; 87185; 87186; 87324; 87449; 87635; 89055; 96361; 96374; 96375; 99285; J1200; J1650; J1956; J2543; Q9967